=== PATIENT | male | born 1970 | race Caucasian/White ===

== ENCOUNTER 2018-06-20 23:17 | Emergency (ER) | payer OTHER ==
[~2018-06-20] VITALS: Ht 157.5 cm; Wt 54.4 kg
--- NOTE | 2018-06-20 23:20 | NUR ---
PT BIBA, C/O PT WAS FOUND ON A CURB SLEEPING. PT IS ALERT TO PAINFUL STIMULI AND STERNAL RUB. STRONG SMELL OF WEED PRESENT. WEED FOUND IN PT POCKETS. PT BREATHING IS EQUAL AND UNLABORED. PERRLA. NO SIGNS OF TRAUMA. PT PLACED IN GOWN, IN BED; BED IN LOWER LOCKED POSITION. PT PLACED ON WELCOME WAGON HOST/HOSTESS. PENDING ER MD ZIMMERMAN. WILL CONTINUE TO MONITOR. PMH: UNKNOWN RX: UNKNOWN
--- NOTE | 2018-06-20 23:20 | NUR ---
PT ADRIAN ALS. TAKEN TO BED 4
[2018-06-20 23:21] VITALS: BP 121/88
--- NOTE | 2018-06-20 23:45 | NUR ---
PT SNORING WHILE SLEEPING O2 SAT AT 88 DURING THIS TIME, PT PLACED ON 4L OF NC.
--- NOTE | 2018-06-21 00:55 | NUR ---
PT ALERT TO PAINFUL STIMULI/CHEST RUB. BREATHING EQUAL AND UNLABORED. VSS.
--- NOTE | 2018-06-21 02:00 | NUR ---
LAB AT BEDSIDE. PT ALERT TO PAINFUL STIMULI, PT POSITION FOR COMFORT. VSS. BREATHING EQUAL AND UNLABORED.
[2018-06-21 02:05] LABS: BASOPHILS # (AUTO) 0.1 K/uL (0.00-0.22); BASOPHILS % (AUTO) 0.5 % (0.0-2.0); EOSINOPHILS # (AUTO) 0.1 K/uL (0-0.4); EOSINOPHILS % (AUTO) 0.7 % (0.0-4.0); HEMATOCRIT 44.2 % (36-52); HEMOGLOBIN 14.7 g/dL (12.0-18.0); LYMPHOCYTES # (AUTO) 1.7 K/uL (2.0-11.5); LYMPHOCYTES % (AUTO) 15.2 % (20.5-51.1); MEAN CORPUSCULAR HEMOGLOBIN 34 pg (27-31); MEAN CORPUSCULAR HGB CONC 33 g/dL (33-37); MEAN CORPUSCULAR VOLUME 101.6 fL (80-94); MONOCYTES # (AUTO) 0.7 K/uL (0.8-1.0); MONOCYTES % (AUTO) 6.1 % (1.7-9.3); NEUTROPHILS # (AUTO) 8.7 K/uL (1.8-7.7); NEUTROPHILS % (AUTO) 77.5 % (42.2-75.2); PLATELET COUNT (AUTO) 235 K/uL (140-450); RED BLOOD CELL COUNT(AUTO) 4.35 MIL/uL (4.20-6.10); RED CELL DISTRIBUTION WIDTH 14.5 % (11.6-13.7); WHITE BLOOD COUNT (AUTO) 11.2 K/uL (4.8-10.8)
[2018-06-21 02:22] LABS: ALBUMIN 3.5 g/dL (3.4-5.0); ANION GAP 16.8 (8-16); CARBON DIOXIDE 24.1 mmol/L (21-32); CREATININE 1.2 mg/dL (0.7-1.3); POTASSIUM 3.9 mmol/L (3.5-5.1); TOTAL BILIRUBIN 0.2 mg/dL (0.0-1.0)
[2018-06-21] MEDS ORDERED: NACL 0.9% 1,000 ML IV ONE (02:50)
--- NOTE | 2018-06-21 04:30 | NUR ---
PT MORE ALERT, PT IS OPENING AND CLOSING EYES, PT WAS ABLE TO STAND W/ ASSISTANCE TO TRY AND URINATE. PT IS MUMBLING WORDS. ALERT TO NAME AND VOICE. SAFETY PRECAUTIONS IN PLACE.
--- NOTE | 2018-06-21 07:04 | NUR ---
Dr. Steinberg evaluating patient at bedside.
--- NOTE | 2018-06-21 07:14 | NUR ---
Pt report given to JOE Brunner. Patient responsive to painful stimuli, VSS. Transfer of care at this time.
--- NOTE | 2018-06-21 07:15 | NUR ---
RECEIVED REPORT FROM ASIC VERIFICATION ENGINEER RN. PT RESTING IN BED. RESPONSE TO PAIN STIMULI. SR ON MONITOR. VSS. WILL CONTINUE TO MONITOR.
--- NOTE | 2018-06-21 08:16 | NUR ---
PT DOES NOT RESPONSE VERBAL STIMULI. RESPONSIVE TO PAINFUL STIMULI, STERNAL RUB. SLEEPING, SNORING AT THIS TIME. VSS. BREATHING NORMALLY. CONTINUE ON O2 AT 4 LTR VIA NC. CONTINUE TO MONITOR.
--- NOTE | 2018-06-21 08:55 | NUR ---
AWAKENED PATIENT,STILL INCOHERENT/CONFUSED AND STRONG SMELL OF ALCOHOL.
--- NOTE | 2018-06-21 09:21 | NUR ---
PT ALERT AND ORIENTED X4. AMBULATORY. STEADY GAIT. STATES LIVING IN SAME ADDRESS GIVEN. VSS. DENIES ANY PROBLEM AT THIS TIME.
[2018-06-21 09:25] VITALS: BP 129/96
--- NOTE | 2018-06-21 09:25 | NUR ---
Patient discharged with v/s stable. Written and verbal after care instructions given and explained. Patient verbalized understanding. Ambulatory with steady gait. All questions addressed prior to discharge. Advised to follow up with PMD.
== END 2018-06-21 09:25 | disposition home or self-care (01) ==
LOC: MED 23:17
DX: F10.129 Alcohol abuse with intoxication, unspecified (principal); Y90.9 Presence of alcohol in blood, level not specified
CPT/HCPCS: 36415; 80053; 83690; 85025; 96360; 99283; G0482; J7030

== ENCOUNTER 2018-11-25 07:21 | Emergency (ER) | payer OTHER ==
[~2018-11-25] VITALS: Ht 165.1 cm; Wt 63.5 kg
[2018-11-25 07:27] VITALS: BP 171/116
[2018-11-25] MEDS ORDERED: THIAMINE 200 MG/2 ML VIAL IM ONE (07:45)
[2018-11-25] MEDS ORDERED: NACL 0.9% 1,000 ML IV ONE ×2 (07:45→09:50)
[2018-11-25 08:06] LABS: BASOPHILS # (AUTO) 0.1 K/uL (0.00-0.22); BASOPHILS % (AUTO) 0.9 % (0.0-2.0); EOSINOPHILS # (AUTO) 0.2 K/uL (0-0.4); EOSINOPHILS % (AUTO) 2.2 % (0.0-4.0); HEMATOCRIT 38.5 % (36-52); HEMOGLOBIN 12.9 g/dL (12.0-18.0); LYMPHOCYTES # (AUTO) 1.6 K/uL (2.0-11.5); LYMPHOCYTES % (AUTO) 17.2 % (20.5-51.1); MEAN CORPUSCULAR HEMOGLOBIN 36 pg (27-31); MEAN CORPUSCULAR HGB CONC 33 g/dL (33-37); MEAN CORPUSCULAR VOLUME 106.4 fL (80-94); MONOCYTES # (AUTO) 0.7 K/uL (0.8-1.0); NEUTROPHILS # (AUTO) 6.7 K/uL (1.8-7.7); NEUTROPHILS % (AUTO) 72.7 % (42.2-75.2); PLATELET COUNT (AUTO) 314 K/uL (140-450); RED BLOOD CELL COUNT(AUTO) 3.62 MIL/uL (4.20-6.10); RED CELL DISTRIBUTION WIDTH 14.8 % (11.6-13.7); WHITE BLOOD COUNT (AUTO) 9.3 K/uL (4.8-10.8)
[2018-11-25 08:19] LABS: APPEARANCE,URINE CLEAR (CLEAR); BILIRUBIN,URINE NEGATIVE (NEGATIVE); BLOOD, URINE TRACE-I (NEGATIVE); COLOR,URINE YELLOW (YELLOW); LEUKOCYTE ESTERASE ,URINE NEGATIVE (NEGATIVE); NITRITE, URINE NEGATIVE (NEGATIVE); UGLUCOSE NEGATIVE (NEGATIVE)
[2018-11-25 08:24] LABS: BARBITURATE, URINE NEG. ng/ml (NEG <=200); BENZODIAZEPINE, URINE NEG. ng/mL (NEG <=200); CANNABINOID, URINE POS. ng/mL (NEG <=50); COCAINE, URINE NEG. ng/mL (NEG <=300); OPIATE, URINE NEG. ng/mL (NEG <=2000); PHENCYCLIDINE SCREEN,URINE NEG. ng/mL (NEG <=25)
[2018-11-25 08:29] LABS: ALBUMIN 3.7 g/dL (3.4-5.0); ANION GAP 22.2 (8-16); POTASSIUM 3.2 mmol/L (3.5-5.1); TOTAL BILIRUBIN 0.3 mg/dL (0.0-1.0)
[2018-11-25 08:53] LABS: RBC,URINE 0-5 /HPF (0-5); WBC,URINE 0-5 /HPF (0-5)
[2018-11-25 14:18] LABS: ANION GAP 15.4 (8-16); CARBON DIOXIDE 21.1 mmol/L (21-32); CREATININE 0.8 mg/dL (0.7-1.3); POTASSIUM 3.5 mmol/L (3.5-5.1)
[2018-11-25 15:22] VITALS: BP 130/85
== END 2018-11-25 15:22 | disposition home or self-care (01) ==
LOC: MED 07:21
DX: F10.129 Alcohol abuse with intoxication, unspecified (principal)
CPT/HCPCS: 36415; 36600; 70450; 70486; 71045; 72072; 72100; 72125; 73060; 74177; 80048; 80053; 80305; 81001; 82009; 82803; 83605; 83735; 85025; 93005; 96372; 99284; G0482; J3411; J7030; Q0092; Q9967